=== PATIENT | male | born 1970 | race Caucasian/White ===

== ENCOUNTER → 2020-08-21 08:05 | Outpatient (BNVA) | payer BC, SELFPAY | PROVIDERS: Visit Provider Orthopaedic Surgery | DX: M25.561 Pain in right knee (principal) | CPT/HCPCS: 73560; 73565 ==

== ENCOUNTER 2020-09-24 09:13 | Day surgery (SDC) | payer BC, SELFPAY ==
[2020-09-23 13:38] VITALS: BMI 29.6
[2020-09-24 09:39] VITALS: BP 135/94; PULSE 72; RESP 18; TEMP 36.6; O2SAT 98
[2020-09-24] MEDS: sodium chloride 0.9% 1,000 ML 30 ML IV (10:03)
--- NOTE | 2020-09-24 10:42 | P.HP_ITS ---
Same Day Surgery H&P Indication for Procedure/HPI DATE OF PROCEDURE: September 24, 2020 CHIEF COMPLAINT/INDICATIONFOR SURGICAL PROCEDURE: Right medial meniscal tear PREOP DIAGNOSIS: Knee Right medial meniscal tear PLANNED PROCEDRUE: Operation Date: 09/24/20 10:50 Proposed Procedures p right Knee Arthroscopy with medial meniscectomy 74501 S83.241A(Right) - Geo Colon MD The patient is a 50-year-old male with a history of intermittent aching pain in his right knee for years. 8 weeks ago he was walking with a wheelbarrow in his yard when he twisted his knee with sharp increase medial joint line pain. An MRI has been obtained showing complex tear of the medial meniscus. He has tried acetaminophen and ibuprofen without improvement in the pain. He is here for arthroscopic right medial meniscectomy Medications/Allergies* Home Medications Medication Instructions Recorded Confirmed Type acetaminophen 325 mg tablet 325 mg PO QID PRN 08/21/20 09/24/20 History amlodipine 5 mg tablet 5 mg PO DAILY 08/21/20 09/24/20 History ibuprofen 200 mg tablet 200 mg PO Q6H PRN 08/21/20 09/24/20 History lisinopril 20 mg tablet 20 mg PO DAILY 08/21/20 09/24/20 History levocetirizine [Xyzal] 5 mg PO DAILY 09/24/20 09/24/20 History Allergies/Adverse Reactions Allergy/AdvReac Type Severity Reaction Status Date / Time Penicillins Allergy ALGY-Hives Verified 09/24/20 09:36 Current Medications: Generic Name Dose Route Start Last Admin Trade Name Freq PRN Reason Stop Dose Admin Sodium Chloride 1,000 mls @ 30 mls/hr 09/24/20 09:30 09/24/20 10:03 Sodium Chloride 0.9% IV 09/25/20 09:29 30 mls/hr .Q24H BIRD Administration Pertinent History/Comorbid Conditions* Social History Smoking and tobacco status: never smoked Alcohol intake: current Alcohol intake frequency: holidays/special occasions only Pertinent Exam Findings alert, oriented x 3, clear to auscultation bilaterally and operative site marked Recommendations Surgery/Procedure today Other Plans: We will proceed to the OR for diagnostic arthroscopy and likely medial meniscectomy. I do not anticipate significant degenerative changes. Overall explained to him that his prognosis is excellent. He is aware of potential risks with the surgery. I discussed the risk of continued pain particular degenerative changes are present. I discussed unlikely risk of bleeding infection. I discussed the possibility of future surgical procedures. He understands all these and agrees to proceed. 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
[2020-09-24] MEDS: morphine 4 mg/mL SDV 1 mL 8 MG (11:40)
--- NOTE | 2020-09-24 11:43 | ANES.PREANE2 ---
Pre-Anesthetic Assessment Pre-Anesthetic Assessment: Height/Weight: Height 1.73 m Weight 88.451 kg Temp Pulse Resp BP Pulse Ox 97.8 F 72 18 135/94 98 09/24/20 09:39 09/24/20 09:39 09/24/20 09:39 09/24/20 09:39 09/24/20 09:39 Preop Diagnosis: Knee Right medial meniscal tear Proposed Procedure: Operation Date: 09/24/20 10:50 Proposed Procedures p right Knee Arthroscopy with medial meniscectomy 18756 S83.241A(Right) - Geo Colon MD Was Beta Rudolph taken within 24 hours: N/A Was Clonidine taken within 24 hours: N/A Last intake: Intake Last Liquid Date 09/23/20 Last Liquid Time 21:00 Last Solid Date 09/23/20 Last Solid Time 21:00 Social: Social History: No alcohol and No tobacco Exam: Pre-Anes Outpt Exam: alert, oriented x 3, clear to auscultation bilaterally and regular rate & rhythm Airway: Submandibular: WNL Cervical ROM: WNL MP: 2 Dentition: Full CV/HEM: CV/HEM: HTN Anesthetic Plan: ASA status: 2 Anesthesia: General Risk of > 500 ml blood loss (7ml/kg in children): No Meds/Allergies Current Medications: Current Medications Generic Name Dose Route Start Last Admin Trade Name Freq PRN Reason Stop Dose Admin Sodium Chloride 1,000 mls @ 30 ml s/hr 09/24/20 09:30 09/24/20 10:03 Sodium Chloride 0.9% IV 09/25/20 09:29 30 mls/hr .Q24H BIRD Administration PFSH Anesthesia PFSH: Social History Smoking and tobacco status: never smoked Alcohol intake: current Alcohol intake frequency: holidays/special occasions only Data Anesthesia Cardiac Studies: No Data to Display
--- NOTE | 2020-09-24 11:57 | PM.OP ---
Operative Report Date of procedure: September 24, 2020 Pre-op Diagnosis: Knee Right medial meniscal tear Post-op diagnosis: same Post-op Findings: Same Procedure Done: Arthroscopic right medial meniscal Pathology: none sent Surgeon: Geo Colon Anesthesia: General Estimated blood loss (mL): 2 Tourniquet time (min): 16 Findings: The patient had a complex tearing involving the central 80% of his medial meniscus. He had minimal chondral flaps over the superficial cartilage of weightbearing medial femoral condyle Condition: stable Disposition: PACU Procedure: The patient was taken to the operating room and given a general anesthesia was prepped and draped in the supine position with a tourniquet on the right thigh. The knee was prepped and infiltrated 30 cc of 0.5% Marcaine with epi and 10 mg of morphine.. The knee was draped in the usual fashion. A timeout was performed. The knee was entered through standard inferior medial and inferolateral portals. The diagnostic portion of the arthroscopy was performed. Complex tearing the medial meniscus was noted. Additional debridement was accomplished with an incisor shaver removing unstable flaps anteriorly and resecting a large unstable flaps from the root insertion. This left approximately at 20% of the meniscus remaining. The rim was then cleaned up with the [employer] probe leaving a rim of approximately 20% of the meniscus preserved. Superficial flaps were identified over the medial femoral condyle which were lightly debrided back with the [employer] probe under low ablation mode. The remainder of the knee arthroscopy is unremarkable. Portals were closed with 3-0 Prolene. Sterile dressings were applied. The patient was extubated taken to recovery in stable condition.
[2020-09-24 11:59] VITALS: BP 129/74; PULSE 87; RESP 18; TEMP 36.3; O2SAT 92
[2020-09-24 12:05] VITALS: BP 135/87; PULSE 82; RESP 20; O2SAT 98
[2020-09-24 12:10] VITALS: PULSE 82; RESP 17; TEMP 36.1; O2SAT 99
[2020-09-24 12:15] VITALS: BP 119/93; PULSE 87; RESP 18; TEMP 36.5; O2SAT 96
[2020-09-24 12:34] VITALS: BP 126/93; PULSE 73; RESP 18; O2SAT 96
[2020-09-24] MEDS: HYDROcodone-acetaminophen 5-325 mg Tablet 1 TAB PO (12:36)
--- NOTE | 2020-09-24 14:45 | ANE.PACU2 ---
Inpatient post-anesthesia follow up: Airway intact: Yes Vital signs: Temperature 97.7 F Pulse Rate 73 Respiratory Rate 18 Blood Pressure 126/93 Pulse Oximetry 96 Oxygen Delivery Me thod Room Air Oxygen Flow Rate Fraction of Inspir ed Oxygen Hydration adequate: Yes Nausea and vomiting: No Pain level: 2 Mental status: Baseline
== END 2020-09-24 12:56 | disposition home or self-care (01) ==
PROVIDERS: Visit Provider Orthopaedic Surgery
PROC: (CPT 29870; principal; 2020-09-24 10:40)
DX: S83.241A Other tear of medial meniscus, current injury, right knee, initial encounter (principal); X50.1XXA Overexertion from prolonged static or awkward postures, initial encounter; I10 Essential (primary) hypertension
CPT/HCPCS: 29881; J0690; J2270; J2704; J3010; J3490; J7030